=== PATIENT | male | born 1935 | race Caucasian/White ===

== ENCOUNTER 2019-12-14 06:23 | Day surgery (SDC) | payer OTHER, MEDICAID ==
--- NOTE | 2019-12-12 14:07 | NUR ---
LABS AND TESTS SENT OVER TO [facility] FOR REVIEW. LABS OKAY FOR SURGERY FOR 2-14-[address] CARPIO.
[~2019-12-14] VITALS: Ht 165.1 cm; Wt 79.4 kg
[2019-12-14 07:26] VITALS: BP 148/68
[2019-12-14 12:44] VITALS: BP 140/62
== END 2019-12-14 11:30 | disposition home or self-care (01) ==
LOC: GI 06:23 → OR 08:00 → GI 08:00
DX: K83.8 Other specified diseases of biliary tract (principal); E11.9 Type 2 diabetes mellitus without complications; I10 Essential (primary) hypertension; E78.5 Hyperlipidemia, unspecified; Z90.49 Acquired absence of other specified parts of digestive tract; Z88.8 Allergy status to other drugs, medicaments and biological substances; Z79.84 Long term (current) use of oral hypoglycemic drugs; Z79.899 Other long term (current) drug therapy; Z98.890 Other specified postprocedural states
CPT/HCPCS: 43262; 82962; C1769; C2625; J1610; J2250; J3010; Q0092; Q9967